=== PATIENT | female | born 2005 | race Caucasian/White ===

== ENCOUNTER 2024-09-12 16:46 | Emergency (ER) | payer BC ==
[2024-09-12] MEDS ORDERED: Sodium Chloride 0.9% 10 ML Syringe FLUSH PRN (17:10)
[2024-09-12] MEDS: Sodium Chloride 0.9% 1,000 ML IV SCH (17:30)
[2024-09-12] MEDS: Ondansetron 4 MG/2 ML SDV IVPUSH ONE (17:31)
[2024-09-12 17:34] LABS: HEMATOCRIT 36.6 % (34.2-48.2); HEMOGLOBIN 12.9 g/dL (11.4-15.5); MEAN CORPUSCULAR HEMOGLOBIN 32.6 pg (23.9-33.9); MEAN CORPUSCULAR HGB CONC 35.3 g/dL (31.9-34.8); MEAN CORPUSCULAR VOLUME 92.2 fL (76.7-100.5); MEAN PLATELET VOLUME 6.9 fL (7.1-12.4); PLATELET COUNT,PLT 294 x10(3)uL (151-488); RED BLOOD CELL COUNT 3.97 x10(6)uL (3.60-5.20); WHITE BLOOD CELL COUNT,WBC 18.1 x10-3/uL (3.0-10.3)
[2024-09-12 17:35] LABS: BLOOD UREA NITROGEN,BUN 8 mg/dL (7-18); BUN/CREATININE RATIO 11.4 (9-20); CALCIUM 9.6 mg/dL (8.2-10.1); CARBON DIOXIDE,CO2 25 mmol/L (21-32); CHLORIDE,CL 101 mmol/L (100-110); CREATININE 0.7 mg/dL (0.55-1.02); EST CRCL DRUG DOSING (CG) 135.09 mL/min; ESTIMATED GFR 128 mL/min (>60); GLUCOSE RANDOM 127 mg/dL (80-116); POTASSIUM,K 3.5 mmol/L (3.5-5.3); SODIUM,NA 135 mmol/L (135-145)
[2024-09-12 17:43] LABS: LYMPHOCYTES PERCENT MAN 9 % (13-37); MONOCYTES PERCENT MAN 8 % (4-12); SEG NEUTROPHILS PERCENT MAN 83 % (46-82)
== END 2024-09-12 18:09 | disposition home or self-care (01) ==
LOC: FB.ED 16:46
DX: O21.9 Vomiting of pregnancy, unspecified (principal); Z3A.09 9 weeks gestation of pregnancy
CPT/HCPCS: 36415; 80048; 85025; 96361; 96374; 99284-25; J2405; J7030